=== PATIENT | female | born 1990 | race Caucasian/White ===

== ENCOUNTER 2025-03-23 12:17 | Observation (INO) | payer OTHER, SELFPAY ==
[2025-03-23] VITALS (12 sets, daily range): BP systolic 107–127; BP diastolic 60–77; PULSE 59–86; RESP 14–21; TEMP 36.2–37.1; O2SAT 90–98; BMI 40.3
--- NOTE | 2025-03-23 | PATH_ITS ---
[facility] Accession Number: [id number] No. of containers..01 Tissue . 01 Material submitted: . appendix - APPENDIX . 01 Diagnosis: APPENDIX, APPENDECTOMY: Marked acute appendicitis with serositis. No evidence of neoplasm. MRV 03/28/2025 1415 Local . 01 Electronically signed: . Jose Angel Bassett MD, PhD, Pathologist NPI- [id number] . 01 Gross description: . Received in formalin with two identifiers and appendix, is a esteban, vermiform appendix, 3.5 cm in length by 0.7 cm in diameter. The serosa is smooth with a small amount of mesoappendix extending out to 1.3 cm. The margin is inked blue. The lumen averages 0.3 cm in diameter and contains hemorrhagic material. The villatoro range from 0.1 to 0.3 cm thick with no perforation or lesions identified. Head Of Art sections to include the margin, entire bisected distal tip, and cross-sections are submitted in A1. ([id number]) /MRV 03/27/2025 1308 Local . 01 Pathologist provided ICD-10: K35.80 . 01 CPT . 277821 Specimen Comment: A courtesy copy of this report has been sent to [facility] Pathology Performed at: [address], [place], [place] [id number] MD Aneudy Lovell MD Phone: [phone]
--- NOTE | 2025-03-23 13:01 | PM.HP.IH.1 ---
History of Present Illness History of Present Illness Date Patient Seen: 03/23/25 Time Patient Seen: 13:01 Chief complaint: ABD Pain Narrative: The patient is a 34-year-old female who presents with about a 24 hour history of abdominal pain. The pain started yesterday about 2 PM as periumbilical abdominal pain which he described as a cramping sensation that radiated to her back. The pain subsequently shifted the right lower quadrant. Pain became sharper and more intense. The pain was worse with movement and better when she lies still. Patient describes multiple episodes of nausea and vomiting. She is anorexic. She presented to the emergency department at [facility] and a subsequent CT scan was consistent with acute appendicitis. Review of Systems Review of Systems ROS: Yes All systems reviewed with the patient and are negative except as otherwise documented Exam Narrative Exam Narrative: Patient is alert and oriented and in no apparent distress. HEENT is remarkable for dry oral and buccal mucosa. Neck is supple and nontender Chest is clear to auscultation percussion bilaterally Cardiac reveals a regular rate and rhythm Abdomen is soft with well-localized right lower quadrant tenderness with some voluntary guarding. She does have percussion tenderness over the right lower quadrant. Bowel sounds are hypoactive. Extremities reveal full range of motion Neuro grossly intact Assessment & Plan Assessment and plan (1) Acute appendicitis: Status: Acute Plan We will plan a laparoscopic cholecystectomy. Indications, planned procedure, and inherent risks were explained to the patient. She appears to understand and agrees to proceed as outlined. Patient reportedly received some Zosyn at [facility] sometime this morning. Time-Based Coding :: [TOTAL MINUTES] spent with patient and on the chart (including review of chart, obtaining history, exam, reviewing outside data, placing orders, documenting exam and treatment plan, and counseling patient) on [DATE]. PROFEE Business Banking Officer Document charge(s): Yes
[2025-03-23] MEDS: LACTATED RINGERS 1,000 ML 42 ML IV ×2 (14:04→15:44)
--- NOTE | 2025-03-23 14:23 | PC.NURSE ---
Day shift: Pt off unit for lap appy in OR at approx 1345.
[2025-03-23] MEDS: ACETAMINOPHEN IV 1,000 MG/100 ML VIAL 400 MG IV (14:32)
[2025-03-23] MEDS: PIPERACILLIN/TAZO 3.375 GM in SODIUM CHLORIDE 0.9% 100 ML IV (14:44)
--- NOTE | 2025-03-23 14:56 | SUR.OPER ---
Supine on padded OR bed, head on pillow, arms padded with gel pads and tucked at sides, legs uncrossed, safety belt at thigh and shoulders.
--- NOTE | 2025-03-23 16:04 | P.OP_ITS ---
Operative Date/Time/Diagnoses Date of procedure: 03/23/25 Time of procedure: 16:04 Pre-op diagnosis: Acute appendicitis Post-op diagnosis: same Procedure & Clinicians Procedure: Laparoscopic appendectomy Same procedure(s) as scheduled: Yes Surgeon: KATHY* *Temp Click Yes if Unassisted: Yes Anesthesia Type: General Operative Notes Findings: Patient had acutely inflamed gallbladder without any perforation or free fluid. Closure Type: primary Specimen(s): other Applied: none Estimated Blood Loss (mL): 10 Procedure in detail: After appropriate patient identification, patient was placed in the procedure table in supine position. Upon achievement of adequate general anesthesia, the abdomen was prepped with ChloraPrep and draped in sterile manner. After the time-out, the previous umbilical piercing site was ellipsed using a 15 blade knife and the skin was removed using Bovie electrocautery. The dissection was carried through subcutaneous tissue down to linea alba using Bovie electrocautery. The linea alba was opened under direct vision using Bovie electrocautery. The peritoneum was entered using blunt dissection. Mhqnle-el-bzdih suture of 0 Vicryl was then placed in the knee alba and a Salazar catheter was passed through the incision and secured with the previously placed suture. The abdomen was insufflated using carbon dioxide to 15 mmHg pressure. Two 5 mm ports were placed under direct vision, 1 in the left lower quadrant and 1 in the suprapubic region. Attention was then directed to the right lower quadrant and the cecum was identified as well as the appendix. The appendix was grasped with an Endo Juancho. Mesoappendix was dissected from the appendix using a [place] di ssector. An Endo-ISABELL was passed with vascular crystal and the mesoappendix was divided and stapled. A 2nd Endo-ISABELL was passed with tissue crystal and the appendix was amputated at its base. The appendix was placed in a plastic bag and brought out through the supraumbilical incision. The Salazar was reinserted and the abdomen is re-insufflated. The operative site was inspected and hemostasis was assured. The right lower quad irrigated with sterile normal saline. All trocars were removed. The previously placed 0 Vicryl was then tied thereby closing the linea alba incision. All skin incisions were reapproximated 4-0 undyed Monocryl in an interrupted subcuticular fashion. Steri-Strips and a sterile dressing was placed and procedure was terminated. The patient was transferred to the PACU in good condition having sustained approximately 10 cc blood loss Complications: none
--- NOTE | 2025-03-23 16:05 | P.OP_ITS ---
Procedure & Clinicians Procedure: Laparoscopic appendectomy Same procedure(s) as scheduled: Yes Indications: The patient is a 34-year-old female who presents with about a 24 hour history of abdominal pain. The pain started yesterday about 2 PM as periumbilical abd ominal pain which he described as a cramping sensation that radiated to her back. The pain subsequently shifted the right lower quadrant. Pain became sharper and more intense. The pain was worse with movement and better when she lies still. Patient describes multiple episodes of nausea and vomiting. She is anorexic. She presented to the emergency department at [facility] and a subsequent CT scan was consistent with acute appendicitis. Surgeon: ED* *Temp Click Yes if Unassisted: No Anesthesia Type: General
--- NOTE | 2025-03-23 16:54 | PC.NURSE ---
Day shift: Back in room from PACU at approx 1648. SHe remains A&Ox4. Reports ABD pain 2/10. Denies any nausea. The 3 lap sites appear CDI. VS WNL. RA 97%. Encouraged to cough and deep breath as tolerated. Plan to continue with post-op plan of care. Spouse and kids in room for support.
[2025-03-23] MEDS: OXYCODONE IR 5 MG TABLET PO (18:13)
[2025-03-23] MEDS: ACETAMINOPHEN 325 MG TABLET 650 MG PO ×2 (18:13→20:55)
[2025-03-23] MEDS: CELECOXIB 200 MG CAPSULE PO (20:54)
[2025-03-23] MEDS: OXYCODONE IR 10 MG TABLET PO (20:54)
[2025-03-23] MEDS: SODIUM CHLORIDE 0.9% FLUSH 10 ML IV (21:00)
[2025-03-24 00:19] VITALS: BP 109/64; PULSE 86; RESP 16; O2SAT 100
[2025-03-24] MEDS: ACETAMINOPHEN 325 MG TABLET 650 MG PO ×2 (03:42→09:16)
[2025-03-24] MEDS: OXYCODONE IR 10 MG TABLET PO (03:43)
[2025-03-24 04:24] VITALS: BP 122/70; PULSE 71; RESP 17; TEMP 36.3; O2SAT 98
[2025-03-24 07:32] VITALS: BP 115/61; PULSE 64; RESP 18; TEMP 36.8; O2SAT 96
[2025-03-24] MEDS: CELECOXIB 200 MG CAPSULE PO (08:28)
[2025-03-24] MEDS: SODIUM CHLORIDE 0.9% FLUSH 10 ML IV (08:28)
--- NOTE | 2025-03-24 10:09 | PM.PN.IH.1 ---
Subjective Subjective Date Patient Seen: 03/24/25 Time Patient Seen: 10:09 Interval history: Patient has less than 24 hours status post a laparoscopic appendectomy for acute appendicitis. She is doing well and pain is being managed with multimodal therapy. She is tolerating clear liquids. Exam Vital Signs (past 8 hours): - 03/24/25 04:24 03/24/25 07:32 Temperature 97.4 F L 98.2 F Pulse Rate 71 64 Respiratory Rate 17 18 Blood Pressure 122/70 115/61 Pulse Oximetry 98 96 Oxygen Flow Rate 0 0 Oxygen Delivery Method Room Air Oxygen Flow Rate 0 Narrative Exam Narrative: Lungs are clear to auscultation bilaterally Cardiac was regular rate and rhythm Abdomen is soft, nontender, with active bowel sounds Dressings are dry and intact [facility] Social History household members: spouse and children Smoking Status: Current some day smoker Assessment & Plan Assessment and plan (1) Acute appendicitis: Status: Acute Assessment & Plan narrative: The patient is doing well and will be discharged. She should follow up with the surgeon either on [facility] or at [facility] surgeons within the next 7-10 days Time-Based Coding :: [TOTAL MINUTES] spent with patient and on the chart (including review of chart, obtaining history, exam, reviewing outside data, placing orders, documenting exam and treatment plan, and counseling patient) on [DATE]. PROFEE Optics Test Technician Document charge(s): Yes
--- NOTE | 2025-03-24 10:25 | PM.DS.IH.1 ---
History of Present Illness History of Present Illness Date Patient Seen: 03/24/25 Chief complaint: ABD Pain Narrative: The patient is a 34-year-old female who presents with about a 24 hour history of abdominal pain. The pain started yesterday about 2 PM as periumbilical abdominal pain which he described as a cramping sensation that radiated to her back. The pain subsequently shifted the right lower quadrant. Pain became sharper and more intense. The pain was worse with movement and better when she lies still. Patient describes multiple episodes of nausea and vomiting. She is anorexic. She presented to the emergency department at [facility] and a subsequent CT scan was consistent with acute appendicitis. Discharge Providers Provider Date of admission: 03/23/25 12:17 Discharge Date: 03/24/25 Consults: 03/23/25 15:59 Consult to Discharge Planning Routine Comment: Discharge provider: Isauro Vidal MD Summary Hospital Course Discharge Diagnosis: Acute appendicitis Hospital Course: Patient underwent a laparoscopic appendectomy and her postoperative course was completely unremarkable. Status at Discharge Cognitive/behavioral status at discharge: oriented Functional status at discharge: independent ambulation Overall status at discharge: patient is progressing back to baseline Time Spent with Patient Time spent: Less than 30 minutes Exam Vital Signs (past 8 hours): - 03/24/25 04:24 03/24/25 07:32 Temperature 97.4 F L 98.2 F Pulse Rate 71 64 Respiratory Rate 17 18 Blood Pressure 122/70 115/61 Pulse Oximetry 98 96 Oxygen Flow Rate 0 0 Oxygen Delivery Method Room Air Oxygen Flow Rate 0 Narrative Exam Narrative: Lungs are clear to auscultation bilaterally Cardiac reveals a regular rate and rhythm Abdomen is soft, nontender, with active bowel sounds. Dressings are dry and intact [facility] Social History household members: spouse and children Smoking Status: Current some day smoker Discharge Assessment & Plan Assessment and Plan Assessment: Acute appendicitis Plan of Treatment: The patient is discharged to home today and should follow up with a surgeon in [facility] or the [facility] surgeons within the next 7-10 days. Discharge Plan Discharge Plan Patient Disposition: Home Discharge orders & Medications Prescriptions: New celecoxib [Celebrex] 200 mg Capsule 200 mg PO BID Qty: 60 0RF acetaminophen 325 mg Tablet 650 mg PO Q6H Qty: 100 0RF naloxone 0.4 mg/mL Solution 0.2 mg IV Q2MIN PRN (Reason: Opiate Reversal) Qty: 1 0RF oxycodone 5 mg Tablet 5 mg PO Q3H PRN (Reason: Pain, Moderate (4-6)) Qty: 20 0RF Continued propranolol 10 mg tablet 10 mg PO 3XD sertraline 50 mg tablet 25 mg PO Q24H Discharge Health Status Multidrug resistant organism: No MDRO Diet/Activity/Treatments Diet: Regular Visit Report/Discharge Packet Stand Alone Forms: Patient Portal/API, Stroke Signs & Symptoms, Work/Release Restrictions, Surgery Discharge IH PROFEE Charge Codes Discharge inpatient/observation: [id number]
[2025-03-24] MEDS: OXYCODONE IR 5 MG TABLET PO (10:48)
[2025-03-24] MEDS: PROPRANOLOL 10 MG TABLET PO (10:48)
[2025-03-24] MEDS: SERTRALINE 50 MG TABLET 25 MG PO (10:48)
[2025-03-24 12:00] VITALS: BP 101/55; PULSE 66; RESP 17; TEMP 36.8; O2SAT 97
[2025-03-24] MEDS: HYDROMORPHONE 1 MG INJ IV (12:40)
--- NOTE | 2025-03-24 14:40 | CM.DANOTE ---
DCP Assessment note pt is a 34yo F POD1 lap appy. direct admit from [facility] PCP none listed Payer prime and self pay [employer] reviewed EMR. per chart, medically cleared to dc. per chart, pt lives indep at home with partner in [place]. young children in home. indep at baseline. pt left prior to being seen by this [employer] P: home today with spouse support. no identified DCP needs at this time. CM team will continue to follow as needed in case any CM needs should arise CELY Malcolm Discharge Planning/Care Management CM Discharge Assessment Start: 03/23/25 13:22 Freq: Status: Discharge Protocol: Document 03/24/25 14:39 SL (Rec: 03/24/25 14:39 SL Desktop) Discharge Planning Assessment Assigned Discharge CELY Monteiro Melter Caster DPOA/Assigned Alexi spouse Designee Name Contact Information [phone] Advance Directives? No History Provided By Patient Prior Living House Arrangements Household Members spouse,children Independent with ADL Yes 's Is patient alert and Yes oriented? Discharge Plan Home Review Status In Process Please Provide Date 03/24/25 Initial DC Assessment Was Performed Next Review Type Continued Stay Review
== END 2025-03-24 13:40 | disposition home or self-care (01) ==
PROVIDERS: Admitting Provider Surgery Trauma Surgery; PCP Student in an Organized Health Care Education/Training Program; Referring Provider Surgery Trauma Surgery; Visit Provider Surgery Trauma Surgery
PROC: 0DTJ4ZZ Resection of Appendix, Percutaneous Endoscopic Approach (ICD-10-PCS; CPT 44970; principal; 2025-03-23 14:00)
DX: K35.80 Unspecified acute appendicitis (principal); F17.210 Nicotine dependence, cigarettes, uncomplicated; G89.18 Other acute postprocedural pain
CPT/HCPCS: 44970; 64450; G0378; G0379; J0131; J1100; J1171; J1885; J2250; J2405; J2543; J2704; J3010